=== PATIENT | female | born 1970 | race Hispanic/Latino ===

== ENCOUNTER 2025-01-08 17:16 | Emergency (ER) | payer BC ==
[~2025-01-08] VITALS: Ht 144.8 cm; Wt 98.7 kg
[2025-01-08] MEDS ORDERED: OZEMPIC1 MG/0.71 (17:38)
[2025-01-08] MEDS ORDERED: LIPITOR20 MG PO (17:39)
[2025-01-08] MEDS ORDERED: ZESTRIL20 MG PO (17:39)
[2025-01-08 17:40] LABS: BLOOD/HGB, URINE NEGATIVE (Negative); KETONE, URINE NEGATIVE (Negative); LEUK ESTERASE, URINE NEGATIVE (negative); NITRITE, URINE NEGATIVE (negative)
[2025-01-08] MEDS ORDERED: SODIUM CHLORIDE 0.9% 1,000 ML IV ONE (17:45)
[2025-01-08 18:01] LABS: BASOPHILS 0.4 % (0.1-1.2); EOSINOPHILS 2.9 % (0.7-5.8); LYMPHOCYTES 27.9 % (19.3-51.7); MCH 29.8 PG (25.6-32.2); MCHC 33.3 g/dL (32.2-35.5); MCV 89.6 fL (79.4-94.8); MONOCYTES 6.8 % (4.7-12.5); NEUTROPHILS 61.8 % (34.0-71.1); RBC 4.60 M/uL (3.93-5.22)
[2025-01-08 18:17] LABS: ALT (SGPT) 26.0 U/L (14-59); AST (SGOT) 17.0 U/L (15-37); GLOMERULAR FILTRATION RATE,EST 101.0 mL/min (>60); PROTEIN, TOTAL 7.3 g/dL (6.4-8.2); UREA NITROGEN 8.0 mg/dL (7-18)
[2025-01-08] MEDS ORDERED: OMEPRAZOLE40 MG PO ×2 (20:08→20:22)
[2025-01-08] MEDS ORDERED: ONDANSETRON ODT4 MG PO ×2 (20:08→20:22)
[2025-01-08 20:20] VITALS: BP 133/73
--- NOTE | 2025-01-10 09:43 | EKG ---
[facility] [address] [facility] [place] [address] Signed Normal sinus rhythm Minimal voltage criteria for LVH, may be normal variant ( Otis product ) Anterior infarct , age undetermined Abnormal ECG No previous ECGs available Confirmed by Suad Chan MD ([id number]) on 01/10/2025 9:43:09 AM Electronically Signed By: SUAD CHAN MD 01/10/25 0943 PATIENT NAME: DANIEL LOZANO Electrocardiogram DATE OF : 74 PHYSICIAN: SUAD CHAN MD REPORT #: [id number] REPORT IS CONFIDENTIAL AND NOT TO BE RELEASED WITHOUT AUTHORIZATION
== END 2025-01-08 20:20 | disposition home or self-care (01) ==
LOC: ED 17:16
PROVIDERS: Emergency Medicine
DX: R14.0 Abdominal distension (gaseous) (principal); R10.12 Left upper quadrant pain; Z79.899 Other long term (current) drug therapy
CPT/HCPCS: 36415; 74177; 80053; 81003; 83690; 85025; 99284-25; J2405; J7030; Q9967